=== PATIENT | female | born 1965 | race Caucasian/White ===

== ENCOUNTER 2016-12-09 11:22 | Emergency (ER) | payer MEDICAID ==
[~2016-12-09] VITALS: Ht 172.7 cm; Wt 63.6 kg
[2016-12-09 12:40] LABS: HEMOGLOBIN 12.6 g/dL (11.7-16.4)
[2016-12-09 12:50] LABS: BLOOD UREA NITROGEN 8 mg/dL (7-18)
[2016-12-09 12:55] LABS: ASPARTATE AMINO TRANSFERASE 17 U/L (15-37)
[2016-12-09 13:00] LABS: IS PT STATUS REG ER OR PRE ER? YES
[2016-12-09 13:36] LABS: DAU SCREEN DISCLAIMER
[2016-12-09 14:24] VITALS: BP 107/59
== END 2016-12-09 14:33 | disposition home or self-care (01) ==
LOC: ED 12:57
DX: K52.9 Noninfective gastroenteritis and colitis, unspecified (principal); K37 Unspecified appendicitis; N39.0 Urinary tract infection, site not specified; K57.92 Diverticulitis of intestine, part unspecified, without perforation or abscess without bleeding; N83.519 Torsion of ovary and ovarian pedicle, unspecified side; K85.90 Acute pancreatitis without necrosis or infection, unspecified; F17.200 Nicotine dependence, unspecified, uncomplicated
CPT/HCPCS: 36415; 51701; 71010; 80053; 80307; 81001; 83690; 83880; 84484; 85025; 93005; P9612

== ENCOUNTER 2016-12-10 09:21 | Emergency (ER) | payer MEDICAID ==
[~2016-12-10] VITALS: Ht 172.7 cm; Wt 67.5 kg
[2016-12-10 09:26] VITALS: BP 117/72
[2016-12-10 10:21] LABS: HEMOGLOBIN 12.6 g/dL (11.7-16.4)
[2016-12-10 10:31] LABS: ASPARTATE AMINO TRANSFERASE 20 U/L (15-37); BLOOD UREA NITROGEN 15 mg/dL (7-18)
== END 2016-12-10 11:34 | disposition home or self-care (01) ==
LOC: ED 11:25
DX: K80.20 Calculus of gallbladder without cholecystitis without obstruction (principal)
CPT/HCPCS: 36415; 76700; 80053; 83690; 85025

== ENCOUNTER 2017-03-10 14:32 | Emergency (ER) | payer MEDICAID ==
[~2017-03-10] VITALS: Ht 172.7 cm; Wt 66.0 kg
[2017-03-10] MEDS ORDERED: maalox/diphenh/lido/sucralfate 5 ML PO ONE (15:30)
[2017-03-10 15:47] LABS: BLOOD UREA NITROGEN 8 mg/dL (7-18)
[2017-03-10 15:52] LABS: IS PT STATUS REG ER OR PRE ER? YES
[2017-03-10 16:42] VITALS: BP 98/52
== END 2017-03-10 16:44 | disposition home or self-care (01) ==
LOC: ED 15:26
DX: K13.79 Other lesions of oral mucosa (principal); R07.89 Other chest pain; F17.200 Nicotine dependence, unspecified, uncomplicated; E11.9 Type 2 diabetes mellitus without complications
CPT/HCPCS: 36415; 71010; 80048; 82040; 84484; 85025; 93005; 99285

== ENCOUNTER 2017-03-18 01:28 | Emergency (ER) | payer MEDICAID ==
[~2017-03-18] VITALS: Ht 172.7 cm; Wt 58.5 kg
[2017-03-18 06:02] VITALS: BP 95/52
== END 2017-03-18 06:05 | disposition home or self-care (01) ==
LOC: ED 05:33
DX: S76.911A Strain of unspecified muscles, fascia and tendons at thigh level, right thigh, initial encounter (principal); E11.9 Type 2 diabetes mellitus without complications; F10.220 Alcohol dependence with intoxication, uncomplicated; X58.XXXA Exposure to other specified factors, initial encounter; Y93.89 Activity, other specified; Y99.8 Other external cause status; Y92.89 Other specified places as the place of occurrence of the external cause
CPT/HCPCS: 99284

== ENCOUNTER 2017-07-03 10:05 | Emergency (ER) | payer MEDICAID ==
[~2017-07-03] VITALS: Ht 175.3 cm; Wt 73.0 kg
[2017-07-03 11:32] LABS: HEMATOCRIT 37.1 % (34.6-47.8); HEMOGLOBIN 12.4 g/dL (11.7-16.4); WHITE BLOOD COUNT 6.9 x10^3/uL (3.4-10)
[2017-07-03 11:42] LABS: BLOOD UREA NITROGEN 14 mg/dL (7-18)
[2017-07-03 11:46] LABS: ASPARTATE AMINO TRANSFERASE 13 U/L (15-37)
[2017-07-03] MEDS ORDERED: CEFTRIAXONE 1,000 MG IM ONE (12:30)
[2017-07-03] MEDS ORDERED: AZITHROMYCIN 500 MG TABLET PO ONE (12:30)
[2017-07-03] MEDS ORDERED: AZITHROMYCIN 500 MG TABLET ONE (12:56)
[2017-07-03] MEDS ORDERED: CEFTRIAXONE 250 MG ONE (12:56)
[2017-07-03 13:05] VITALS: BP 95/61
== END 2017-07-03 13:39 | disposition home or self-care (01) ==
LOC: ED 13:24
DX: A59.01 Trichomonal vulvovaginitis (principal); N72 Inflammatory disease of cervix uteri; E11.9 Type 2 diabetes mellitus without complications; F17.200 Nicotine dependence, unspecified, uncomplicated
CPT/HCPCS: 36415; 80053; 81001; 85025; 87070; 87086; 87205; 87210; 87491; 87591; 87808; 96372; 99284; J0696

== ENCOUNTER 2017-09-26 19:56 | Emergency (ER) | payer MEDICAID ==
[~2017-09-26] VITALS: Ht 172.7 cm; Wt 80.0 kg
[2017-09-26 22:34] VITALS: BP 132/84
== END 2017-09-26 22:36 | disposition home or self-care (01) ==
LOC: ED 22:30
DX: S02.2XXA Fracture of nasal bones, initial encounter for closed fracture (principal); S79.912A Unspecified injury of left hip, initial encounter; E11.9 Type 2 diabetes mellitus without complications; F10.129 Alcohol abuse with intoxication, unspecified; G89.11 Acute pain due to trauma; Y04.2XXA Assault by strike against or bumped into by another person, initial encounter; Y93.89 Activity, other specified; Y92.89 Other specified places as the place of occurrence of the external cause; Y99.8 Other external cause status
CPT/HCPCS: 70450; 70486; 72125; 99284

== ENCOUNTER 2017-12-15 11:49 | Emergency (ER) | payer MEDICAID ==
[~2017-12-15] VITALS: Ht 175.3 cm; Wt 66.9 kg
[~2017-12-15 11:49] MED LIST: ACET325T14 PO; ENOX40SY4 SQ; IBUP-1484 PO; OXYC-302 PO; POLY17PO5 PO
[2017-12-15 12:45] LABS: BASOPHILS # (AUTO) 0.04 x10^3/uL (0-0.1); BASOPHILS % (AUTO) 1 % (0-1); EOSINOPHILS # (AUTO) 0.19 x10^3/uL (0-0.4); EOSINOPHILS % (AUTO) 3 % (1-7); LYMPHOCYTES # (AUTO) 2.23 x10^3/uL (1-3.4); LYMPHOCYTES % (AUTO) 38 % (22-44); MD NO; MEAN CORPUSCULAR HEMOGLOBIN 32.7 pg (27.0-34.8); MEAN CORPUSCULAR HGB CONC 33.4 g/dL (32.4-35.8); MEAN CORPUSCULAR VOLUME 97.8 fL (80-100); MEAN PLATELET VOLUME 8.1 fL (7.4-10.4); MONOCYTES # (AUTO) 0.56 x10^3/uL (0.2-0.8); MONOCYTES % (AUTO) 10 % (2-9); NEUTROPHILS # (AUTO) 2.87 x10^3/uL (1.8-6.8); NEUTROPHILS % (AUTO) 49 % (42-75); PLATELET COUNT 329 x10^3/uL (130-400); RED BLOOD COUNT 3.99 x10^6/uL (3.82-5.3); RED CELL DISTRIBUTION WIDTH 13.3 % (9.6-15.2)
[2017-12-15 12:54] LABS: ANION GAP 6 mmol/L (5-15); CALCIUM 8.6 mg/dL (8.5-10.1); CHLORIDE 110 mmol/L (98-107); CREATININE 0.72 mg/dL (0.55-1.02)
[2017-12-15 15:04] VITALS: BP 116/71
== END 2017-12-15 15:06 | disposition home or self-care (01) ==
LOC: ED 13:42
DX: R45.1 Restlessness and agitation (principal); Z72.9 Problem related to lifestyle, unspecified; E11.9 Type 2 diabetes mellitus without complications
CPT/HCPCS: 29515; 36415; 80048; 85025; 93005; 99285

== ENCOUNTER 2017-12-19 07:18 | Emergency (ER) | payer MEDICAID ==
[~2017-12-19] VITALS: Ht 165.1 cm; Wt 56.8 kg
[2017-12-19] MEDS ORDERED: ACETAMINOPHEN 325 MG TABLET ONE (10:19)
[2017-12-19] MEDS ORDERED: ACETAMINOPHEN 325 MG TABLET PO ONE (10:30)
[2017-12-19 15:15] VITALS: BP 114/77
== END 2017-12-19 15:17 | disposition home or self-care (01) ==
LOC: ED 08:43
DX: S82.201D Unspecified fracture of shaft of right tibia, subsequent encounter for closed fracture with routine healing (principal); F10.220 Alcohol dependence with intoxication, uncomplicated; F17.210 Nicotine dependence, cigarettes, uncomplicated; X58.XXXD Exposure to other specified factors, subsequent encounter
CPT/HCPCS: 99283

== ENCOUNTER 2017-12-22 12:39 | Emergency (ER) | payer MEDICAID ==
[2017-12-22 12:56] VITALS: BP 111/72
== END 2017-12-22 13:08 | disposition left against medical advice (07) ==
LOC: ED 12:58
DX: M25.571 Pain in right ankle and joints of right foot (principal); E11.9 Type 2 diabetes mellitus without complications; F32.9 Major depressive disorder, single episode, unspecified; Z76.0 Encounter for issue of repeat prescription
CPT/HCPCS: 99283

== ENCOUNTER 2017-12-23 22:28 | Emergency (ER) | payer MEDICAID ==
[~2017-12-23] VITALS: Ht 167.6 cm; Wt 71.5 kg
[2017-12-23 22:29] VITALS: BP 135/93
== END 2017-12-23 23:19 | disposition home or self-care (01) ==
LOC: ED 23:18
DX: F10.20 Alcohol dependence, uncomplicated (principal); E11.9 Type 2 diabetes mellitus without complications
CPT/HCPCS: 99281

== ENCOUNTER 2017-12-26 00:37 | Emergency (ER) | payer MEDICAID ==
[~2017-12-26] VITALS: Ht 170.2 cm; Wt 80.0 kg
[2017-12-26] MEDS ORDERED: ACETAMINOPHEN 500 MG TABLET PO ONE (01:00)
[2017-12-26] MEDS ORDERED: ACETAMINOPHEN 500 MG TABLET ONE (01:10)
[2017-12-26] MEDS ORDERED: SODIUM CHLORIDE FLUSH 10ML SYR IVF ONE (01:30)
[2017-12-26] MEDS ORDERED: CEFAZOLIN PMX 1GM/50ML 50 ML IVPB ONE (01:30)
[2017-12-26] MEDS ORDERED: SODIUM CHLORIDE 0.9% 1,000ML IVBOLUS ONE (01:30)
[2017-12-26] MEDS ORDERED: CEFAZOLIN PMX 1GM/50ML 50 ML ONE (01:31)
[2017-12-26 01:46] LABS: BASOPHILS # (AUTO) 0.04 x10^3/uL (0-0.1); BASOPHILS % (AUTO) 1 % (0-1); EOSINOPHILS # (AUTO) 0.17 x10^3/uL (0-0.4); EOSINOPHILS % (AUTO) 3 % (1-7); LYMPHOCYTES # (AUTO) 2.54 x10^3/uL (1-3.4); LYMPHOCYTES % (AUTO) 37 % (22-44); MD NO; MEAN CORPUSCULAR HEMOGLOBIN 32.3 pg (27.0-34.8); MEAN CORPUSCULAR HGB CONC 33.2 g/dL (32.4-35.8); MEAN CORPUSCULAR VOLUME 97.3 fL (80-100); MEAN PLATELET VOLUME 7.4 fL (7.4-10.4); MONOCYTES # (AUTO) 0.62 x10^3/uL (0.2-0.8); MONOCYTES % (AUTO) 9 % (2-9); NEUTROPHILS # (AUTO) 3.51 x10^3/uL (1.8-6.8); NEUTROPHILS % (AUTO) 51 % (42-75); PLATELET COUNT 238 x10^3/uL (130-400); RED BLOOD COUNT 3.65 x10^6/uL (3.82-5.3); RED CELL DISTRIBUTION WIDTH 13.9 % (9.6-15.2)
[2017-12-26 02:30] LABS: HCT (SEDRATE) 35.5 % (34.6-47.8)
[2017-12-26 02:50] LABS: ANION GAP 10 mmol/L (5-15); CALCIUM 8.5 mg/dL (8.5-10.1); CHLORIDE 112 mmol/L (98-107)
[2017-12-26 02:56] VITALS: BP 121/71
== END 2017-12-26 03:53 | disposition home or self-care (01) ==
LOC: ED 00:58
DX: S82.401A Unspecified fracture of shaft of right fibula, initial encounter for closed fracture (principal); F10.129 Alcohol abuse with intoxication, unspecified; E11.9 Type 2 diabetes mellitus without complications; Z91.19 Patient's noncompliance with other medical treatment and regimen; W19.XXXA Unspecified fall, initial encounter; Y93.89 Activity, other specified; Y92.89 Other specified places as the place of occurrence of the external cause; Y99.8 Other external cause status
CPT/HCPCS: 36415; 73590; 80048; 83605; 84145; 85025; 85651; 86140; 87040; 93005; 96365; 99285; J0690; J7030

== ENCOUNTER 2017-12-27 22:19 | Emergency (ER) | payer MEDICAID ==
[~2017-12-27] VITALS: Ht 172.7 cm; Wt 70.0 kg
[2017-12-27 22:22] VITALS: BP 117/72
== END 2017-12-27 23:55 | disposition home or self-care (01) ==
LOC: ED 23:09
DX: L03.115 Cellulitis of right lower limb (principal); M79.661 Pain in right lower leg; F10.10 Alcohol abuse, uncomplicated; E11.9 Type 2 diabetes mellitus without complications
CPT/HCPCS: 99281

== ENCOUNTER 2018-12-25 08:51 | Emergency (ER) | payer MEDICAID ==
[~2018-12-25] VITALS: Ht 175.3 cm; Wt 96.6 kg
[2018-12-25 08:53] VITALS: BP 137/90
== END 2018-12-25 10:02 | disposition home or self-care (01) ==
LOC: ED 09:56
DX: S80.02XA Contusion of left knee, initial encounter (principal); S80.01XA Contusion of right knee, initial encounter; G89.29 Other chronic pain; E11.9 Type 2 diabetes mellitus without complications; B37.89 Other sites of candidiasis; W01.0XXA Fall on same level from slipping, tripping and stumbling without subsequent striking against object, initial encounter; Y93.89 Activity, other specified; Y92.009 Unspecified place in unspecified non-institutional (private) residence as the place of occurrence of the external cause; Y99.8 Other external cause status
CPT/HCPCS: 99283

== ENCOUNTER 2021-02-25 16:05 | Emergency (ER) | payer MEDICAID ==
[~2021-02-25] VITALS: Ht 165.1 cm; Wt 91.0 kg
[~2021-02-25 16:05] MED LIST changes: -IBUP-1484 PO; +IBUP-1902 PO; -OXYC-302 PO; +OXYC1TAB14 PO
--- NOTE | 2021-02-25 16:23 | NUR ---
BIB [facility]. PT FOUND BY [facility] AMBASS[facility]OV[facility]. +ETOH. PT C/O RIGHT LEG PAIN AND "UNABLE TO AMBULATE". 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 PT STATES SHE HAD "A LITTLE BIT" OF ETOH TODAY. PT SLURRING HER WORDS AND FALLING ASLEEP WHEN NOT BEING TALKED TO. PT C/O RIGHT LE PAIN, NO WINCING OR GAURDING WHEN RLE PALPATED.
--- NOTE | 2021-02-25 18:11 | NUR ---
PT SLEEPING ON GURNEY. RESP EVEN AND UNLABORED. PT CONNECTED TO MONITORING.
--- NOTE | 2021-02-25 18:27 | NUR ---
PT AMBULATED TO RESTROOM WITH SHUFFLING BUT STEADY GAIT. XRAY AT BEDSIDE.
[2021-02-25 19:49] VITALS: BP 110/60
== END 2021-02-25 19:51 | disposition home or self-care (01) ==
LOC: ED 18:37
DX: M79.661 Pain in right lower leg (principal); F10.120 Alcohol abuse with intoxication, uncomplicated; Y90.0 Blood alcohol level of less than 20 mg/100 ml
CPT/HCPCS: 99283

== ENCOUNTER 2021-04-01 17:14 | Emergency (ER) | payer MEDICAID | END 2021-04-01 17:25 | LOC: ED 17:23 | DX: R10.84 Generalized abdominal pain (principal); F10.220 Alcohol dependence with intoxication, uncomplicated; R10.11 Right upper quadrant pain; Y90.0 Blood alcohol level of less than 20 mg/100 ml; E11.9 Type 2 diabetes mellitus without complications; F17.210 Nicotine dependence, cigarettes, uncomplicated | CPT/HCPCS: 99281 ==

== ENCOUNTER 2021-04-24 02:38 | Emergency (ER) | payer MEDICAID ==
[~2021-04-24] VITALS: Ht 175.3 cm; Wt 93.8 kg
--- NOTE | 2021-04-24 02:48 | NUR ---
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
[2021-04-24 03:13] LABS: MICROSCOPIC AUTO
[2021-04-24 05:24] VITALS: BP 110/68
== END 2021-04-24 06:00 | disposition home or self-care (01) ==
LOC: ED 03:27
DX: N30.00 Acute cystitis without hematuria (principal); E11.9 Type 2 diabetes mellitus without complications; F17.200 Nicotine dependence, unspecified, uncomplicated
CPT/HCPCS: 81001; 87086; 99283